=== PATIENT | female | born 1960 | race American Indian/Alaskan Native ===

== ENCOUNTER 2017-01-06 14:36 | Emergency (ER) | payer MEDICAID ==
[2017-01-06 16:06] LABS: Basophils % (Auto) 0.4 % (0.0-1.8); Eosinophils % (Auto) 1.3 % (0.0-4.3); Hematocrit 39.1 % (30.3-42.9); Mean Corpuscular HGB Conc 33 % (30-34); Mean Corpuscular Hemoglobin 31 pg (28-32); Mean Corpuscular Volume 94 fl (79-97); Platelet Count 270 K/mm3 (140-440); Red Blood Count 4.15 M/mm3 (3.65-5.03); Red Cell Distribution Width 14.2 % (13.2-15.2); White Blood Count 8.9 K/mm3 (4.5-11.0)
[2017-01-06 16:26] LABS: Chloride 97.4 mmol/L (98-107); Potassium 3.5 mmol/L (3.6-5.0); Sodium 143 mmol/L (137-145)
[2017-01-06 16:27] LABS: Anion Gap 21 mmol/L; BUN/Creatinine Ratio 23; Blood Urea Nitrogen 14 mg/dL (7-17); Calcium 9.7 mg/dL (8.4-10.2); Carbon Dioxide 28 mmol/L (22-30); Glucose 137 mg/dL (65-100)
[2017-01-06 17:50] VITALS: BP 121/83
== END 2017-01-06 17:47 | disposition left against medical advice (07) ==
LOC: ED 14:36
DX: R07.9 Chest pain, unspecified (principal); Z53.21 Procedure and treatment not carried out due to patient leaving prior to being seen by health care provider
CPT/HCPCS: 36415; 80048; 84484; 85025; 93005; 93010

== ENCOUNTER 2018-02-02 14:27 | Day surgery (SDC) | payer MEDICAID ==
[~2018-02-02 14:27] MED LIST: DILAUDID IV PRN; LACTATED RINGERS 1,000 ML IV SCH; VERSED IV NR; ZOFRAN IV PRN
[2018-02-02] MEDS ORDERED: TRANSDERM-SCOP TD ONE (15:37)
[2018-02-02] MEDS ORDERED: ANCEF/STERILE WATER 2 GM/20 ML IV NR (16:00)
--- NOTE | 2018-02-02 16:13 | Anesthesia Consultation ---
Anesthesia Consult and Med Hx Date of service: 02/02/18 - Airway Anesthetic Teeth Evaluation: Good ROM Head & Neck: Adequate Mental/Hyoid Distance: Adequate Mallampati Class: Class III Intubation Access Assessment: Possibly Difficult - Pulmonary Exam CTA: Yes - Cardiac Exam Cardiac Exam: RRR - Pre-Operative Health Status ASA Pre-Surgery Classification: ASA3 Proposed Anesthetic Plan: General - Pulmonary Hx Smoking: Yes (STOPPED X 3 YRS ( 1 PACK PER WEEK )) Hx Asthma: Yes (last inhaler use 3 days ago) Hx Respiratory Symptoms: No SOB: No COPD: No Hx Sleep Apnea: No (MARYANN PRE SCREEN LOW RISK.) - Cardiovascular System Hx Hypertension: Yes Hx Heart Attack/AMI: No Hx Percutaneous Transluminal Coronary Angioplasty (PTCA): No - Central Nervous System Hx Seizures: No CVA: No Hx Back Pain: Yes (2/2 renal stone) - Gastrointestinal Hx Gastroesophageal Reflux Disease: No - Endocrine Hx Renal Disease: No Hx Liver Disease: No Hx Insulin Dependent Diabetes: Yes Hx Hypothyroidism: Yes - Other Systems Hx Obesity: Yes - Additional Comments Anesthesia Medical History Comments: No hx anesthetic complications. Complained of nausea and vomiting past several days, most recent episode earlier today.
--- NOTE | 2018-02-02 16:14 | Anesthesia Day of Surgery ---
Anesthesia Day of Surgery - Day of Surgery Patient Examined: Yes Patient H&P Reviewed: Yes Patient is NPO: Yes
--- NOTE | 2018-02-02 17:01 | Post Operative Note ---
Date of procedure: 02/02/18 Pre-op diagnosis: l upj stone Post-op diagnosis: same Findings: as above Procedure: cysto stent eswl Anesthesia: GETA Surgeon: DEBO BATES Estimated blood loss: none Pathology: none Condition: stable Disposition: PACU
--- NOTE | 2018-02-02 17:02 | Discharge Summary ---
Short Stay Discharge Plan Activity: other (no straining ) Weight Bearing Status: Full Weight Bearing Diet: low fat, low cholesterol, low salt Special Instructions: other (inc fluids ) Durable Medical Equipment Needed Upon Discharge: other (j stent ) Follow up with: PRIMARY CARE, [Primary Care Provider] - 7 Days DEBO BATES MD [Staff Physician] - 7 Days
--- NOTE | 2018-02-02 17:52 | Post Anesthesia Evaluation ---
- Post Anesthesia Evaluation Patient Participated: Yes Airway Patent: Yes Stable Respiratory Function: Yes Nausea/Vomiting: No Temp > 96.8F: Yes Pain Manageable: Yes Adequeate Hydration: Yes Anesthesia Complications: No
[2018-02-02] MEDS ORDERED: DECADRON ONE (17:54)
[2018-02-02] MEDS ORDERED: SUBLIMAZE ONE (17:54)
[2018-02-02] MEDS ORDERED: QUELICIN ONE (17:54)
[2018-02-02] MEDS ORDERED: DIPRIVAN 10 MG/ML IV ONE (17:54)
[2018-02-02] MEDS ORDERED: ZOFRAN ONE (17:54)
[2018-02-02] MEDS ORDERED: OMNIPAQUE 300 MG/50 ML (CATH LAB) IV ONE (18:07)
[2018-02-02] MEDS ORDERED: ZEMURON IV ONE (18:58)
[2018-02-02 20:13] VITALS: BP 132/87
--- NOTE | 2018-02-03 07:39 | Operative Report ---
PREOPERATIVE DIAGNOSES: Large left ureteropelvic junction stone, [id number] left hydronephrosis. POSTOPERATIVE DIAGNOSES: Large left ureteropelvic junction stone, [id number] left hydronephrosis. PROCEDURE: Cystoscopy, left J-stent 5-Qatari, left ESWL along the stent. SURGEON: Paco Smallwood M.D. ANESTHESIA: General. FINDINGS: This is a woman who is obese with a large left UPJ stone, left flank pain, and presents for treatment. DESCRIPTION OF PROCEDURE: The patient was brought to the operating room and placed on the operating table. Following induction of anesthesia, the stone was difficult to visualize. It was more lucid than was noted preoperatively. A retrograde showed a large stone at the left UPJ. There was [id number] left hydronephrosis. A Glidewire coiled in the upper pole and a 5-Qatari 24-cm double J coil in the kidney. At this point, it should be noted, we had an open ended. There was no purulent material, so we proceeded with the lithotripsy. We lithotripsied along the upper stent where the stone was seen on the retrograde. The patient tolerated the procedure well, and 2500 shocks were given from 1 kV to 8 kV. She tolerated the procedure well. She had some little mucus which had to be suctioned out during the procedure and her sats then came right to 98, and was brought to recovery in stable condition. JOB# [id number] ALAINA/MARILEE
== END 2018-02-02 20:35 | disposition home or self-care (01) ==
LOC: OR 14:27
PROVIDERS: ATTEND Urology
DX: N13.2 Hydronephrosis with renal and ureteral calculous obstruction (principal); I11.0 Hypertensive heart disease with heart failure; I50.9 Heart failure, unspecified; E03.9 Hypothyroidism, unspecified; E78.00 Pure hypercholesterolemia, unspecified; J45.909 Unspecified asthma, uncomplicated; K21.9 Gastro-esophageal reflux disease without esophagitis; E11.9 Type 2 diabetes mellitus without complications; D64.9 Anemia, unspecified; E66.9 Obesity, unspecified; Z68.33 Body mass index [BMI] 33.0-33.9, adult; Z79.82 Long term (current) use of aspirin; Z79.4 Long term (current) use of insulin; Z90.710 Acquired absence of both cervix and uterus; Z87.891 Personal history of nicotine dependence; Z98.890 Other specified postprocedural states
CPT/HCPCS: 50590; 52332; 82803; 82962; C1726; C1758; C1769; C2617; J0330; J0690; J1100; J2405; J2704; J3010; J7120

== ENCOUNTER 2018-02-20 06:17 | Day surgery (SDC) | payer MEDICAID ==
[2018-02-20] MEDS ORDERED: PROAIR IH ONE (07:13)
--- NOTE | 2018-02-20 07:36 | Anesthesia Consultation ---
Anesthesia Consult and Med Hx Date of service: 02/20/18 - Airway Anesthetic Teeth Evaluation: Good ROM Head & Neck: Adequate Mental/Hyoid Distance: Adequate Mallampati Class: Class II Intubation Access Assessment: Probably Good - Pulmonary Exam CTA: Yes - Cardiac Exam Cardiac Exam: RRR - Pre-Operative Health Status ASA Pre-Surgery Classification: ASA3 Proposed Anesthetic Plan: General - Pulmonary Hx Smoking: Yes (STOPPED X 3 YRS ( 1 PACK PER WEEK )) Hx Asthma: Yes (INHALER/ NEB USE PRN) Hx Respiratory Symptoms: No SOB: No COPD: No Hx Pneumonia: No Hx Sleep Apnea: No (MARYANN PRE SCREEN LOW RISK.) - Cardiovascular System Hx Hypertension: Yes (X 20 YRS) Hx Heart Attack/AMI: No Hx Percutaneous Transluminal Coronary Angioplasty (PTCA): No - Central Nervous System Hx Seizures: No CVA: No Hx Back Pain: Yes (2/2 renal stone) - Gastrointestinal Hx Gastroesophageal Reflux Disease: No - Endocrine Hx Renal Disease: No Hx End Stage Renal Disease: No Hx Liver Disease: No Hx Insulin Dependent Diabetes: Yes Hx Hypothyroidism: Yes - Hematic Hx Anemia: Yes (NOT RECENT) - Other Systems Hx Cancer: No Hx Obesity: Yes - Additional Comments Anesthesia Medical History Comments: CHF seen by surgical aide Dr. Ricks February 14, 2018 for clearance. Nurse to contact office for documentation; No GAC, No FHAC.
[2018-02-20] MEDS ORDERED: XYLOCAINE MPF 2% ONE (07:49)
[2018-02-20] MEDS ORDERED: DIPRIVAN 10 MG/ML IV ONE (07:50)
[2018-02-20] MEDS ORDERED: SUBLIMAZE ONE ×2 (07:50→08:37)
[2018-02-20] MEDS ORDERED: NACL 0.9% 1000 ML 1,000 ML ONE (07:51)
[2018-02-20] MEDS ORDERED: PEPCID IV ONE (08:06)
[2018-02-20] MEDS ORDERED: ZOFRAN ONE (08:06)
[2018-02-20] MEDS ORDERED: VERSED ONE (08:08)
[2018-02-20] MEDS ORDERED: ROBINUL ONE (08:23)
[2018-02-20] MEDS ORDERED: ZOFRAN IV PRN (08:24)
[2018-02-20] MEDS ORDERED: DILAUDID IV PRN (08:24)
--- NOTE | 2018-02-20 08:24 | Anesthesia Day of Surgery ---
Anesthesia Day of Surgery - Day of Surgery Patient Examined: Yes Patient H&P Reviewed: Yes Patient is NPO: Yes
[2018-02-20] MEDS ORDERED: LACTATED RINGERS 1,000 ML IV SCH (09:00)
[2018-02-20] MEDS ORDERED: NACL 0.9% 1000 ML 1,000 ML IV SCH (09:00)
[2018-02-20] MEDS ORDERED: WATER FOR IRRIG STERILE IR ONE (09:00)
[2018-02-20] MEDS ORDERED: ANCEF/STERILE WATER 2 GM/20 ML IV NR (09:00)
--- NOTE | 2018-02-20 09:25 | Post Operative Note ---
Date of procedure: 02/20/18 Pre-op diagnosis: left upj stone Post-op diagnosis: same Findings: as above Procedure: cysto ureteroscopy laser stent Anesthesia: GETA Surgeon: DEBO BATES Estimated blood loss: none Pathology: none Condition: stable Disposition: PACU
--- NOTE | 2018-02-20 09:27 | Discharge Summary ---
Short Stay Discharge Plan Activity: other (no straonong ) Weight Bearing Status: Full Weight Bearing Diet: low fat, low cholesterol, low salt Special Instructions: other (inc fluids ) Durable Medical Equipment Needed Upon Discharge: other (do not pull string ) Follow up with: CELI REVELES [Other] - 7 Days DEBO BATES MD [Staff Physician] - 10 Days
--- NOTE | 2018-02-20 11:44 | Operative Report ---
PREOPERATIVE DIAGNOSIS: Large ureteropelvic stone, not well seen on x-ray. POSTOPERATIVE DIAGNOSIS: Large ureteropelvic stone, not well seen on x-ray. PROCEDURE: Cystoscopy, left retrograde, left ureteroscopy, laser of large stone and double-J stent replacement. SURGEON: Paco Smallwood MD ANESTHESIA: General. FINDINGS: This is a woman with lithotripsy and upper ureteral stone. Stones could not be well visualized on x-ray, now presents for second stage ureteroscopy. DESCRIPTION OF PROCEDURE: The patient brought to the operating room and placed on the operating table. Following induction of anesthesia, placed in lithotomy position, prepped and draped in usual sterile fashion. Cystourethroscopy revealed a stent and that was withdrawn from the meatus. A double lumen ureteral catheter was placed and a second wire was placed. Ureteroscopy showed the stone in the lower pole haydee and it was lasered at 10 dennis. It was broken into at least 8-10 pieces. The patient tolerated the procedure well. We did not extract any, a double J 7-Northern Irish coiled in the kidney and bladder. The patient tolerated the procedure well. We left the string, brought to recovery in stable condition. JOB# [id number] ALAINA/MARILEE
[2018-02-20 13:33] VITALS: BP 119/86
--- NOTE | 2018-02-21 07:46 | Fluoroscopy Report ---
FLUOROSCOPY RETROGRADE UROGRAPHY: HISTORY: Left renal stone. FINDINGS: Fluoroscopy was provided by radiology during retrograde urography by the urologist. 8 fluoroscopic images were captured. Boat Worker film demonstrates a left ureteral stent in good position. Left ureteroscopy was performed. Per the operative notes, a left renal stone was seen and broken up with a holmium laser. Left ureteral stent replacement was also performed which adequately drains the left collecting system on the final image. No images of the right retropyelogram were saved. IMPRESSION: Left renal stone removal. Left ureteral stent replacement. Correlate with the procedural note is needed.
== END 2018-02-20 11:25 | disposition home or self-care (01) ==
LOC: OR 06:17
PROVIDERS: ATTEND Urology
DX: N20.1 Calculus of ureter (principal); I11.0 Hypertensive heart disease with heart failure; I50.9 Heart failure, unspecified; E78.00 Pure hypercholesterolemia, unspecified; J45.909 Unspecified asthma, uncomplicated; K21.9 Gastro-esophageal reflux disease without esophagitis; E11.9 Type 2 diabetes mellitus without complications; E03.9 Hypothyroidism, unspecified; M19.90 Unspecified osteoarthritis, unspecified site; D64.9 Anemia, unspecified; E66.9 Obesity, unspecified; Z68.33 Body mass index [BMI] 33.0-33.9, adult; Z79.82 Long term (current) use of aspirin; Z79.4 Long term (current) use of insulin; Z79.899 Other long term (current) drug therapy; Z90.710 Acquired absence of both cervix and uterus; Z87.891 Personal history of nicotine dependence; Z98.890 Other specified postprocedural states
CPT/HCPCS: 52356; 74420; 82803; 82962; A4217; C1758; C1769; C2617; J0690; J2250; J2405; J2704; J3010; J7030; Q9967